=== PATIENT | female | born 1985 | race Caucasian/White ===

== ENCOUNTER → 2016-07-31 | Outpatient (CLI) | payer OTHER ==
[~2016-07-31] MED LIST: BUPR-79 PO; DOCU-94 PO; HYDR-5688 PO; LORA10CA2 PO; MTR600X PO; POLY335019 PO; PRLSR20 PO; PROP20TA67 PO; TRAZODONE PO
== END | disposition home or self-care (01) ==
LOC: C.PAPS 14:43
PROVIDERS: ATTEND Obstetrics & Gynecology
DX: D06.9 Carcinoma in situ of cervix, unspecified (principal)

== ENCOUNTER → 2017-06-26 | Outpatient (CLI) | payer OTHER ==
--- NOTE | 2017-06-26 10:48 | DIAGNOSTIC IMAGING REPORT ---
ULTRASOUND RIGHT UPPER QUADRANT ABDOMEN CLINICAL HISTORY: Right upper quadrant abdominal pain. Hepatic steatosis. COMPARISON STUDY: No priors. TECHNIQUE: Real-time, grayscale, and color flow sonography of the right upper quadrant of the abdomen was performed. Images are reviewed in the transverse and longitudinal planes. FINDINGS: Liver: The liver is normal in size and echotexture, measuring 14.7 cm in length. There is no intrahepatic biliary ductal dilatation. The main portal vein is patent. Gallbladder: The gallbladder is normal in appearance. No gallstones are identified. There is no gallbladder wall thickening or pericholecystic fluid. A sonographic De Leon's sign is reportedly absent. The common bile duct measures up to 0.5 cm in diameter. Pancreas: Visualized portions of the pancreatic head and body are normal in appearance. The majority of the pancreas was not well visualized. Right kidney: Survey images of the right kidney demonstrate normal size and echotexture. There is no hydronephrosis. Ascites: None. IMPRESSION: Unremarkable sonographic assessment of the right upper quadrant. No gallstones are seen. Electronically signed by: Kvng Mari M.D. 06/26/2017 10:47 AM Dictated Date/Time: 06/26/2017 10:46 AM
== END | disposition home or self-care (01) ==
LOC: C.ULTR 09:56
PROVIDERS: ATTEND Family Medicine
DX: K76.0 Fatty (change of) liver, not elsewhere classified (principal); R74.0 Nonspecific elevation of levels of transaminase and lactic acid dehydrogenase [LDH]; F10.20 Alcohol dependence, uncomplicated; R10.11 Right upper quadrant pain

== ENCOUNTER → 2017-07-01 | Outpatient (CLI) | payer OTHER | END | disposition home or self-care (01) | LOC: C.PAPS 17:52 | PROVIDERS: ATTEND Obstetrics & Gynecology | DX: Z12.4 Encounter for screening for malignant neoplasm of cervix (principal); Z11.51 Encounter for screening for human papillomavirus (HPV); D06.9 Carcinoma in situ of cervix, unspecified ==